=== PATIENT | female | born 1985 | race Caucasian/White ===

== ENCOUNTER 2022-02-23 16:34 | Emergency (ER) | payer MEDICAID ==
[~2022-02-23] VITALS: Ht 154.9 cm; Wt 58.1 kg
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
--- NOTE | 2022-02-23 18:03 | NUR ---
PT AMBLATE WALKING NO WEEKNESS STADY GAIT
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
[2022-02-23 19:07] VITALS: BP 126/85
== END 2022-02-23 19:08 | disposition home or self-care (01) ==
LOC: ER 16:35
DX: S60.221A Contusion of right hand, initial encounter (principal); V23.4XXA Motorcycle driver injured in collision with car, pick-up truck or van in traffic accident, initial encounter; Y93.55 Activity, bike riding; Y92.89 Other specified places as the place of occurrence of the external cause; Y99.8 Other external cause status
CPT/HCPCS: 73130-TC